=== PATIENT | female | born 1980 | race Caucasian/White ===

== ENCOUNTER 2017-09-22 08:49 | Emergency (ER) | payer OTHER ==
[2017-09-22 09:02] VITALS: TEMP 97.9
[2017-09-22] MEDS ORDERED: LIDOCAINE IV ONE (09:05)
[2017-09-22] MEDS ORDERED: NS IV ONE (09:05)
[2017-09-22 09:15] LABS: PLATELET COUNT 291 10^3/uL (150-400)
[2017-09-22] MEDS ORDERED: ONDANSETRON 4 MG/2 ML VIAL IVP ONE (09:21)
[2017-09-22] MEDS ORDERED: ONDANSETRON 4 MG/2 ML VIAL ONE (09:21)
--- NOTE | 2017-09-22 09:21 | EDPHY ---
H & P Stated Complaint: 1.5 hour LLQ pain to back Time Seen by Provider: 09/22/17 08:55 HPI/ROS: Chief Complaint: Left flank pain HPI: 28-year-old woman had sudden onset of left flank pain approximately 1.5 hr ago. She has also noted quite dark urine. Has a history of kidney stones in the past and this feels similar. Some nausea but no vomiting. Some lower abdominal pain. No fevers or chills. No chest pain or shortness of breath. There are no aggravating or alleviating factors. No recent urinary urgency or frequency. Pain is about an 8/10. ROS: 10 point Review of Systems is negative except as noted in the HPI. PMH: Chronic atopic urticarial syndrome Social History: No smoking, no alcohol, no recreational drug use Family History: non-contributory Physical Exam: Gen: Awake, Alert, uncomfortable appearing HEENT: Nose: no rhinorrhea Eyes: PERRLA, EOMI Mouth: Moist mucosa Neck: Supple, no JVD Chest: nontender, lungs clear to auscultation Heart: S1, S2 normal, no murmur Abd: Soft, non-tender, no guarding Back: Moderate left CVA tenderness, no midline tenderness Ext: no edema, non-tender Skin: no rash Neuro: CN II-XII intact, Sensation grossly intact, Strength 5/5 in bilateral upper and lower extremities - Personal History LMP (Females 10-55): 1-7 Days Ago - Medical/Surgical History Other PMH: kidney stones Constitutional: Initial Vital Signs Temperature (C) 36.6 C 09/22/17 08:54 Heart Rate 80 09/22/17 08:54 Respiratory Rate 20 09/22/17 08:54 Blood Pressure 157/116 H 09/22/17 08:54 O2 Sat (%) 98 09/22/17 08:54 O2 Delivery Mode Room Air Allergies/Adverse Reactions: codeine Allergy (Verified 09/22/17 08:56) Vomiting ibuprofen Allergy (Verified 09/22/17 08:56) Swelling/neck,face,throat Penicillins Allergy (Verified 09/22/17 08:56) Rash Home Medications: Medication Instructions Recorded Hydrocodone/Acetaminophen 1 - 2 each PO Q4-6PRN PRN #20 09/22/17 [Hydrocodon-Acetaminophen 5-325] tablet Tamsulosin HCl 0.4 mg PO DAILY #10 cap 09/22/17 Medical Decision Making ED Course/Re-evaluation: [age] year with symptoms consistent a kidney stone. She is allergic to NSAIDs which causes hives and edema. Will give her intravenous lidocaine here and reassess. Lidocaine infusion done. Pain is improved to a 5/10. - Data Points Laboratory Results: Laboratory Results 09/22/17 09:05 09/22/17 09:05 09/22/17 09/22/17 09/22/17 09:05 09:05 09:05 WBC 7.33 10^3/uL 10^3/uL (3.80-9.50) RBC 5.20 10^6/uL 10^6/uL (4.18-5.33) Hgb 15.1 g/dL g/dL (12.6-16.3) Hct 44.9 % % (38.0-47.0) MCV 86.3 fL fL (81.5-99.8) MCH 29.0 pg pg (27.9-34.1) MCHC 33.6 g/dL g/dL (32.4-36.7) RDW 12.4 % % (11.5-15.2) Plt Count 291 10^3/uL 10^3/uL (150-400) MPV 9.4 fL fL (8.7-11.7) Neut % (Auto) 56.3 % % (39.3-74.2) Lymph % (Auto) 34.0 % % (15.0-45.0) [place] % (Auto) 6.5 % % (4.5-13.0) Eos % (Auto) 2.5 % % (0.6-7.6) Baso % (Auto) 0.3 % % (0.3-1.7) Nucleat RBC Rel Count 0.0 % % (0.0-0.2) Absolute Neuts (auto) 4.13 10^3/uL 10^3/uL (1.70-6.50) Absolute Lymphs (auto) 2.49 10^3/uL 10^3/uL (1.00-3.00) Absolute Monos (auto) 0.48 10^3/uL 10^3/uL (0.30-0.80) Absolute Eos (auto) 0.18 10^3/uL 10^3/uL (0.03-0.40) Absolute Basos (auto) 0.02 10^3/uL 10^3/uL (0.02-0.10) Absolute Nucleated RBC 0.00 10^3/uL 10^3/uL (0-0.01) Immature Gran % 0.4 % % (0.0-1.1) Immature Gran # 0.03 10^3/uL 10^3/uL (0.00-0.10) Sodium 143 mEq/L mEq/L (135-145) Potassium 3.8 mEq/L mEq/L (3.5-5.2) Chloride 101 mEq/L mEq/L (97-110) Carbon Dioxide 26 mEq/l mEq/l (22-31) Anion Gap 16 mEq/L mEq/L (8-16) BUN 16 mg/dL mg/dL (7-23) Creatinine 0.8 mg/dL mg/dL (0.6-1.0) Estimated GFR > 60 Glucose 104 mg/dL H mg/dL (70-100) Calcium 9.2 mg/dL mg/dL (8.5-10.4) Beta HCG, Qual NEGATIVE Urine Color Urine Appearance Urine pH Ur Specific [place] Urine Protein Urine Ketones Urine Blood Urine Nitrate Urine Bilirubin Urine Urobilinogen Ur Leukocyte Esterase Urine RBC Urine WBC Ur Epithelial Cells Urine Bacteria Urine Yeast Urine Glucose 09/22/17 09:00 WBC RBC Hgb Hct MCV MCH MCHC RDW Plt Count MPV Neut % (Auto) Lymph % (Auto) [place] % (Auto) Eos % (Auto) Baso % (Auto) Nucleat RBC Rel Count Absolute Neuts (auto) Absolute Lymphs (auto) Absolute Monos (auto) Absolute Eos (auto) Absolute Basos (auto) Absolute Nucleated RBC Immature Gran % Immature Gran # Sodium Potassium Chloride Carbon Dioxide Anion Gap BUN Creatinine Estimated GFR Glucose Calcium Beta HCG, Qual Urine Color RED Urine Appearance TURBID Urine pH 6.5 (5.0-7.5) Ur Specific [place] >= 1.030 (1.002-1.030) Urine Protein 2+ H (NEGATIVE) Urine Ketones NEGATIVE (NEGATIVE) Urine Blood 3+ H (NEGATIVE) Urine Nitrate NEGATIVE (NEGATIVE) Urine Bilirubin NEGATIVE (NEGATIVE) Urine Urobilinogen 0.2 EU EU (0.2-1.0) Ur Leukocyte Esterase TRACE H (NEGATIVE) Urine RBC >182 /hpf H /hpf (0-3) Urine WBC 3-5 /hpf H /hpf (0-3) Ur Epithelial Cells 2+ /lpf H /lpf (NONE-1+) Urine Bacteria 1+ /hpf H /hpf (NONE SEEN) Urine Yeast 1+ /hpf H /hpf (NONE SEEN) Urine Glucose NEGATIVE (NEGATIVE) Medications Given: Discontinued Medications Acetaminophen (Tylenol) 1,000 mg PO EDNOW ONE Stop: 09/22/17 10:02 Last Admin: 09/22/17 10:03 Dose: 1,000 mg Lidocaine HCl 95 mg/ Sodium (Chloride) 109.5 mls @ 600 mls/hr IV EDNOW ONE Stop: 09/22/17 09:15 Last Admin: 09/22/17 09:19 Dose: 109.5 mls Morphine Sulfate (Morphine) 4 mg IVP ONCE ONE Stop: 09/22/17 10:30 Last Admin: 09/22/17 10:32 Dose: 4 mg Ondansetron HCl (Zofran) 4 mg IVP EDNOW ONE Stop: 09/22/17 09:22 Last Admin: 09/22/17 09:27 Dose: 4 mg Departure - Departure Disposition: Home, Routine, Self-Care Clinical Impression: Renal colic on left side Condition: Good Instructions: Renal Colic (ED), How to Strain Your Urine (ED) Additional Instructions: You may take acetaminophen, 1000 mg every 6 hr. If you do not get pain relief with use acetaminophen you may take acetaminophen with hydrocodone. Do not take acetaminophen if you're taking the acetaminophen with hydrocodone. Strain your urine and to collect the stone and take it to your urology appointment. Follow up with Urology in 3-4 days for further evaluation. Return to the emergency department for worsening uncontrolled pain, fevers, chills, uncontrolled vomiting, or any other concerns. Referrals: JESUS SCHNEIDER NP [Primary Care Provider] - As per Instructions Eugene Ordaz MD [Medical Doctor] - As per Instructions Prescriptions: Hydrocodone/Acetaminophen [Hydrocodon-Acetaminophen 5-325] 1 - 2 each PO Q4- 6PRN PRN #20 tablet PRN Reason: Pain, Severe Tamsulosin HCl 0.4 mg PO DAILY #10 cap
[2017-09-22] MEDS ORDERED: ACETAMINOPHEN 500 MG TAB PO ONE (10:01)
[2017-09-22 10:38] VITALS: RESP 18; O2SAT 97
[2017-09-22 11:20] VITALS: BP 134/90; PULSE 102
== END 2017-09-22 11:19 | disposition home or self-care (01) ==
LOC: CED 08:49
DX: N23 Unspecified renal colic (principal)
CPT/HCPCS: 80048-PO; 81003-PO; 81015-PO; 84703-PO; 85025-PO; 96365; J2405

== ENCOUNTER 2017-09-23 05:52 | Emergency (ER) | payer OTHER ==
[2017-09-23] MEDS ORDERED: NS 1,000 ML IV ONE ×2 (06:01→06:56)
[2017-09-23 06:03] VITALS: TEMP 97.7
[2017-09-23] MEDS ORDERED: HYDROmorphONE/DILAUDID 1 MG/ML INJ IVP ONE ×3 (06:03→07:08)
[2017-09-23] MEDS ORDERED: ONDANSETRON 4 MG/2 ML VIAL IVP ONE (06:04)
[2017-09-23] MEDS ORDERED: HYDROmorphONE/DILAUDID 1 MG/ML INJ ONE (06:05)
[2017-09-23] MEDS ORDERED: ONDANSETRON 4 MG/2 ML VIAL ONE (06:05)
[2017-09-23 06:11] LABS: PLATELET COUNT 285 10^3/uL (150-400)
--- NOTE | 2017-09-23 06:18 | EDPHY ---
H & P Smoking Status: Never smoked Time Seen by Provider: 09/23/17 06:00 HPI/ROS: This patient arrives by private vehicle with her for evaluation of ongoing left renal colic. She was evaluated for this here yesterday, treated with IV Zofran, IV lidocaine, IV morphine and 10 below 7 with history of kidney stones in the past-similar pain in hematuria. test was normal, CBC and metabolic panel was normal. She is unable to tolerate Vicodin home due to ongoing nausea vomiting and reports that the pain worsened today-10/10. She feels that it has shifted somewhat in that there is now more prominent left lower quadrant abdominal pain that had been in the past. She still has the ongoing flank pain. She notes no other exacerbating factors. Her history is notable for an allergy to NSAIDs and has not taken any other medications. A review of her visit less than 24 hr ago reveals negative test and normal renal function at that time. ROS: No fevers or chills. No other constitutional symptoms HEENT: No complaints Pulmonary: No shortness of breath. Cardiovascular: No lightheadedness. No chest pain. GI: No hematemesis. : She reports dark urine. No dysuria. Integumentary: No complaints 10 point ROS is otherwise negative. (Vineet Dash) Past Medical/Surgical History: Ureteral stone 13 years ago Visit yesterday for left renal colic here to the emergency department in [place] (Vineet Dash) Physical Exam: General Appearance: Alert, mild distress due to pain. Eyes: Pupils equal and round no pallor or injection. ENT, Mouth: Mucous membranes moist. Respiratory: There are no retractions, lungs are clear to auscultation. Cardiovascular: Regular rate and rhythm. No murmur gallop or rub Gastrointestinal: Soft with mild left lower quadrant tenderness. No guarding or rebound. No abdominal distension. Back: Positive left-sided CVA tenderness Neurological: GCS 15 Skin: Warm and dry, no rashes. Musculoskeletal: Neck is supple nontender. Extremities are symmetrical, full range of motion. Psychiatric: Mood and affect normal DIFFERENTIAL DIAGNOSIS: After history and physical exam differential diagnosis was considered for left ureteral stone, pyelonephritis, diverticulitis (Vineet Dash) Constitutional: Initial Vital Signs Temperature (C) 36.5 C 09/23/17 06:00 Heart Rate 80 09/23/17 06:00 Respiratory Rate 16 09/23/17 06:00 Blood Pressure 137/81 H 09/23/17 06:00 O2 Sat (%) 96 09/23/17 06:00 O2 Delivery Mode Room Air O2 (L/minute) 2 Allergies/Adverse Reactions: codeine Allergy (Verified 09/23/17 05:58) Vomiting hydrocodone Allergy (Verified 09/23/17 05:58) ibuprofen Allergy (Verified 09/23/17 05:58) Swelling/neck,face,throat Penicillins Allergy (Verified 09/23/17 05:58) Rash Home Medications: Medication Instructions Recorded Hydrocodone/Acetaminophen 1 - 2 each PO Q4-6PRN PRN #20 09/22/17 [Hydrocodon-Acetaminophen 5-325] tablet Tamsulosin HCl 0.4 mg PO DAILY #10 cap 09/22/17 Ondansetron Odt [Zofran Odt] 4 - 8 mg PO Q4PRN PRN #4 tab 09/23/17 SUMAtriptan [Imitrex Sc Injection] 6 mg SQ 09/23/17 Xolair 09/23/17 oxyCODONE/APAP 5/325 [Percocet 1 - 2 tab PO Q4-6PRN PRN #15 tab 09/23/17 5/325 (*)] MDM/Departure - MDM Imaging: Discussed imaging studies w/ front sight attacher Radiologist - MDM Diagnostics: CT abdomen pelvis-left ureteral stone 4-5 mm in diameter at the level of L4 per Dr. Velez with whom I spoke (Vineet Dash) Medications Given: Discontinued Medications Acetaminophen (Tylenol) 1,000 mg PO EDNOW ONE Stop: 09/23/17 06:26 Last Admin: 09/23/17 06:46 Dose: 1,000 mg Hydromorphone HCl (Dilaudid) 1 mg IVP EDNOW ONE Stop: 09/23/17 06:04 Last Admin: 09/23/17 06:12 Dose: 1 mg Hydromorphone HCl (Dilaudid) 0.5 mg IVP EDNOW ONE Stop: 09/23/17 06:44 Last Admin: 09/23/17 06:48 Dose: 0.5 mg Hydromorphone HCl (Dilaudid) 1 mg IVP EDNOW ONE Stop: 09/23/17 07:09 Last Admin: 09/23/17 07:10 Dose: 1 mg Sodium Chloride (Ns) 1,000 mls @ 0 mls/hr IV EDNOW ONE; Wide Open PRN Reason: Protocol Stop: 09/23/17 06:02 Last Admin: 09/23/17 06:12 Dose: 1,000 mls Sodium Chloride (Ns) 1,000 mls @ 0 mls/hr IV EDNOW ONE; Wide Open PRN Reason: Protocol Stop: 09/23/17 06:57 Last Admin: 09/23/17 06:57 Dose: 1,000 mls Ondansetron HCl (Zofran) 4 mg IVP EDNOW ONE Stop: 09/23/17 06:05 Last Admin: 09/23/17 06:13 Dose: 4 mg ED Course/Re-evaluation: IV normal saline bolus, Zofran for nausea with relief, Dilaudid IV with pain relief and Tylenol p.o. Given worsening symptoms, patient is sent for CT abdomen pelvis without contrast to evaluate for stone size position. I counseled the patient regarding her CT results-4-5 mm left ureteral stone at the level L4 I discussed this case with Dr. Kelly at 7:00 a.m. at shift change. I do not anticipate the need for further intervention. However, She will finalize disposition. I Anticipate that the patient will proceed home with follow-up. This patient he does not tolerate hydrocodone due to nausea vomiting. She has tolerated Percocet in the past. 5 out of Percocet script for her renal colic. I counseled regarding this. (Vineet Dash) Pt care turned over at shift change , she had one more episode of severe colicky pain, was given one more dose of Dilaudid and watched for another 90 minutes. She is markedly improved and discharged home. UA without signs of infection. MG (Hanna Blanca) - Depart Disposition: Home, Routine, Self-Care Clinical Impression: Ureteral stone Condition: Good Instructions: Ureteral Stones (ED) Additional Instructions: Diagnosis: Ureteral stone Plan: Drink plenty of fluids Continue your flomax. Zofran for nausea or vomiting if needed Percocet and/or Tylenol for pain as needed. No driving, alcohol work on Percocet. Follow up with urologist for any ongoing symptoms. Return to the emergency department for any significant worsening despite the treatment plan Prescriptions: Ondansetron Odt [Zofran Odt] 4 - 8 mg PO Q4PRN PRN #4 tab PRN Reason: Vomiting oxyCODONE/APAP 5/325 [Percocet 5/325 (*)] 1 - 2 tab PO Q4-6PRN PRN #15 tab PRN Reason: Pain Referrals: Patient,NotPresent [Primary Care Provider] - As per Instructions Eugene Ordaz MD [Medical Doctor] - As per Instructions
[2017-09-23 06:23] VITALS: RESP 18
[2017-09-23] MEDS ORDERED: ACETAMINOPHEN 500 MG TAB PO ONE (06:25)
[2017-09-23 09:03] VITALS: BP 119/66; PULSE 112; O2SAT 98
== END 2017-09-23 09:01 | disposition home or self-care (01) ==
LOC: CED 05:52
DX: N20.1 Calculus of ureter (principal); E86.9 Volume depletion, unspecified
CPT/HCPCS: 74176-PO; 80048-PO; 81003-PO; 81015-PO; 85025-PO; 96374; J1170; J2405